=== PATIENT | female | born 1975 | race Caucasian/White ===

== ENCOUNTER 2019-08-10 00:38 | Outpatient (CLI) | payer OTHER, SELFPAY ==
[2019-08-10 16:19] LABS: SARS-CoV-2 RNA PCR Negative
== END 2019-08-10 00:39 | disposition home or self-care (01) ==
LOC: ANHCOVIDDT 00:38
PROVIDERS: PCP Family Medicine; Visit Provider Internal Medicine Gastroenterology
DX: Z01.818 Encounter for other preprocedural examination (principal); Z11.59 Encounter for screening for other viral diseases
CPT/HCPCS: 87635; C9803; U0003

== ENCOUNTER 2019-08-13 00:22 | Day surgery (SDC) | payer OTHER, SELFPAY ==
[2019-08-06 12:57] VITALS: BMI 24.1
--- NOTE | 2019-08-13 08:11 | P.PNAN_ITS ---
Anes - Initial Pre Proc Eval Procedure: Operation Date: 08/13/19 10:00 Proposed Procedures p Screening Colonoscopy - Apollo Ramirez MD Date/Time: 08/13/19 08:11 Surgeon: Apollo Ramirez MD Pre Op Diagnosis: Fam Hx Colon Ca Patient Data Age: 44 Gender: F Height: 1.7 m Weight: 70 kg Allergies Allergy/AdvReac Type Severity Reaction Status Date / Time Sulfa (Sulfonamide Allergy Mild Rash Verified 08/13/19 08:51 Antibiotics) Home Medications Medication Instructions Recorded Confirmed Type fluticasone propionate 50 1 spray NASAL DAILY #9.9 ml 07/24/19 08/06/19 Rx mcg/actuation nasal spray,suspension peg 3350-electrolytes 236 240 ml PO Q10M #4000 ml 08/09/19 Rx gram-22.74 gram-6.74 gram-5.86 gram solution Patient hx anesthesia problems: none Family hx anesthesia problems: none PMFSH Social History Social History Smoking status: Never smoker Alcohol intake: current Anes - Eval Final PreProcedure Day of Procedure 08/13/19 08:11 Patient weight: normal Heart: regular rate and rhythm Lungs: clear to auscultation and normal air movement Airway: Mallampati scale class II Neurological: alert and oriented Last oral intake: >/= 8 hours ASA classification: I Emergent: no Anesthetic plan: proceed Anesthesia type and monitoring: general GIVS Informed Consent: The patient's anesthetic plan and its attendant risks and benefits were discussed with the patient/family/POA. Questions were solicited a nd answers provided to the satisfaction of the patient/family/POA.
[2019-08-13 08:58] VITALS: BP 125/79; PULSE 70; RESP 18; TEMP 36.6; O2SAT 100
[2019-08-13] MEDS: LACTATED RINGERS 1,000 ML 150 ML IV CONT (09:15)
--- NOTE | 2019-08-13 09:45 | WPDHPUPDATE1 ---
History and Physical Update Update Date/Time: 08/13/19 09:45 History and Physical has been reviewed, including an updated exam of the patient. There are NO changes in the patient's condition. Risks, benefits, and alternatives have been discussed and questions answered. Patient agrees to proceed with procedure.
--- NOTE | 2019-08-13 09:58 | SUR.OPER ---
0952 UPDATED FAMILY (JUAN PABLO) PATIENT TAKEN INTO PROCEDURE ROOM
[2019-08-13 10:40] VITALS: BP 116/73; PULSE 61; RESP 16; O2SAT 100
[2019-08-13 10:50] VITALS: BP 116/76; PULSE 80; RESP 20; O2SAT 100
[2019-08-13 11:00] VITALS: BP 137/79; PULSE 72; RESP 18; O2SAT 100
== END 2019-08-13 11:42 | disposition home or self-care (01) ==
PROVIDERS: PCP Family Medicine; Visit Provider Internal Medicine Gastroenterology
PROC: 0DJD8ZZ Inspection of Lower Intestinal Tract, Via Natural or Artificial Opening Endoscopic (ICD-10-PCS; CPT 45378; principal; 2019-08-13 10:00)
DX: Z12.11 Encounter for screening for malignant neoplasm of colon (principal); K57.30 Diverticulosis of large intestine without perforation or abscess without bleeding; K63.5 Polyp of colon; Z80.0 Family history of malignant neoplasm of digestive organs
CPT/HCPCS: 45381; 45385; 88305; J2704; J7120

== ENCOUNTER → 2019-11-04 14:57 | Outpatient (CLI) | payer OTHER, SELFPAY ==
--- NOTE | ~2019-11-04 | MM_ITS ---
EXAMINATION: MM screening samantha BI w sandy HISTORY: Screening mammogram TECHNIQUE: Craniocaudal and mediolateral oblique 3-D tomosynthesis images were obtained and synthetic 2-D images were generated. CAD analysis was submitted and interpreted. COMPARISON: 11/01/2017 bilateral digital screening mammogram 06/01/2016 bilateral diagnostic digital mammogram and Limited bilateral breast ultrasound examination BREAST PARENCHYMAL COMPOSITION: The breasts are heterogeneously dense, which may obscure small masses . FINDINGS: Bilateral asymmetries and bilateral breast masses are suggested, including up to 2.5 cm cir cumscribed mass in the central right breast and up to 10 mm or larger masses on the left. Bilateral d iagnostic mammography and breast ultrasound examination are recommended. IMPRESSION: 1. Bilateral asymmetry and masses 2. Bilateral diagnostic mammography and breast ultrasound examination are recommended. BI-RADS Category 0: Incomplete: Needs additional imaging evaluation. Reviewed, dictated and finalized at location A. IMPRESSION: 1. Bilateral asymmetry and masses 2. Bilateral diagnostic mammography and breast ultrasound examination are recom mended. BI-RADS Category 0: Incomplete: Needs additional imaging evaluation.
== END ==
PROVIDERS: Visit Provider Obstetrics & Gynecology
DX: Z12.31 Encounter for screening mammogram for malignant neoplasm of breast (principal); R92.8 Other abnormal and inconclusive findings on diagnostic imaging of breast
CPT/HCPCS: 77063; 77067

== ENCOUNTER → 2019-11-26 08:00 | Outpatient (CLI) | payer OTHER, SELFPAY ==
--- NOTE | ~2019-11-26 | MMUS_ITS ---
EXAMINATION: MM diagnostic mammo BI, US breast BI complete HISTORY: Follow-up bilateral breast masses and asymmetries. TECHNIQUE: Additional 3-D tomosynthesis images of the breasts were performed and synthetic 2-D images were generated. CAD analysis was submitted and interpreted. High resolution complete bilateral breas t ultrasound was performed. COMPARISON: Comparison to multiple prior studies sequentially, with oldest reviewed study dated 06/01. BREAST PARENCHYMAL COMPOSITION: The breasts are heterogenously dense, which may obscure small masses. FINDINGS: MAMMOGRAPHIC FINDINGS: Bilateral breast asymmetries are reidentified. There are no suspicious calcifications or architectura l distortion. There are several breast masses which are partially obscured by dense fibroglandular ti ssue. ULTRASOUND: There are in numerable bilateral breast cysts accounting for the masses seen on mammography. Largest in the right breast at 11:00, 2 cm from the nipple measuring 2.7 cm greatest dimension. Largest in th e left breast at 10:00, 4 cm from the nipple measuring 1.8 cm. IMPRESSION: 1. Innumerable bilateral cysts accounting for bilateral masses and asymmetries seen on mammography. N o evidence for malignancy. 2. Routine yearly screening mammogram and regular clinical breast examination are recommended. BI-RADS Category 2: Benign finding(s). Reviewed, dictated and finalized at location A. IMPRESSION: 1. Innumerable bilateral cysts accounting for bilateral masses and asymmetries seen on mammography. No evidence for malignancy. 2. Routine yearly screening mammogram and regular clinical breast examination a re recommended. BI-RADS Category 2: Benign finding(s).
== END ==
PROVIDERS: Visit Provider Obstetrics & Gynecology
DX: R92.8 Other abnormal and inconclusive findings on diagnostic imaging of breast (principal)
CPT/HCPCS: 76641; 77066

== ENCOUNTER → 2020-01-22 10:46 | Outpatient (CLI) | payer OTHER, SELFPAY ==
--- NOTE | ~2020-01-22 | CT_ITS ---
EXAMINATION: CT abdomen pelvis w con EXAM DATE: 01/22/2020 11:27 INDICATION: R10.31 - Right lower quadrant pain TECHNIQUE: Spiral CT of the abdomen and pelvis was performed following intravenous injection of 100 m L Omnipaque 350. Axial, coronal and sagittal images were reviewed. The dose-length product (DLP) fo r this examination was 514.43 mGy-cm. The exposure was tailored according to patient size (auto mA e xposure control), and iterative reconstruction (ASIR) was used as additional dose reduction technique . Comparison is made to prior examination from 08/11/2012. FINDINGS: The liver, spleen, adrenal glands and pancreas are unremarkable. Gallbladder is unremarkab le. No biliary obstruction. Portal and splenic veins are patent. Kidneys enhance symmetrically. T here is no hydronephrosis. The uterus and ovaries are unremarkable, no adnexal mass. The bladder i s unremarkable. There is no retroperitoneal or pelvic lymphadenopathy. Appendix has fluid inside, is normal in caliber and without adjacent inflammation (see axial images 9 2-93, coronal image 33. This is located in the superficial aspect right lower quadrant just above the inguinal canal for clinical correlation. The stomach and small bowel are unremarkable. There is expected amount of colonic stool. No free i ntraperitoneal gas. The heart is normal in size. There are no pericardial or pleural effusions. T he lung bases are unremarkable. There are no osteoblastic or osteolytic lesions identified. IMPRESSION: Appendix with fluid inside, but normal in caliber and no adjacent inflammation or other a cute findings. Reviewed, dictated and finalized at location A. MER OPERATOR IMPRESSION: Appendix with fluid inside, but normal in caliber and no adjacent i nflammation or other acute findings.
== END ==
PROVIDERS: PCP Nurse Practitioner; Visit Provider Nurse Practitioner
DX: R10.31 Right lower quadrant pain (principal)
CPT/HCPCS: 74177; Q9967

== ENCOUNTER 2020-04-14 11:10 | Outpatient (CLI) | payer OTHER, SELFPAY ==
--- NOTE | ~2020-04-14 | US_ITS ---
EXAMINATION: US breast RT limited HISTORY: Palpable lump at the 9:00 location of the right breast TECHNIQUE: Limited right breast ultrasound is performed. COMPARISON: 11/26/2019 FINDINGS: There is a group of cysts at the 9:00 location in the breast corresponding to the palpable abnormality of concern. The largest cyst measures 2.9 cm, previously 2.7 cm. IMPRESSION: Grouped cysts of the right breast corresponding to the palpable abnormality of concern. BI-RADS Category 2: Benign finding(s). Reviewed, dictated and finalized at location A. DEVELOPER DESIGNER
== END 2020-04-14 11:11 | disposition home or self-care (01) ==
PROVIDERS: PCP Nurse Practitioner; Visit Provider Obstetrics & Gynecology
DX: N60.11 Diffuse cystic mastopathy of right breast (principal)
CPT/HCPCS: 76642

== ENCOUNTER 2021-01-11 02:13 | Day surgery (SDC) | payer OTHER, SELFPAY ==
[2020-12-28 12:55] VITALS: BMI 23.9
--- NOTE | 2021-01-11 07:32 | P.PNAN_ITS ---
Anes - Initial Pre Proc Eval Procedure: Operation Date: 01/11/21 08:30 Proposed Procedures p Screening Colonoscopy - Apollo Ramirez MD Date/Time: 01/11/21 07:32 Surgeon: Apollo Ramirez MD Pre Op Diagnosis: hx of colon polyps, neoplasm screening Patient Data Age: 45 Gender: F Height: 1.68 m Weight: 67.2 kg Allergies Allergy/AdvReac Type Severity Reaction Status Date / Time Sulfa (Sulfonamide Allergy Mild Rash Verified 01/11/21 07:44 Antibiotics) Home Medications Medication Instructions Recorded Confirmed Type norethindrone 1 mg-ethinyl 1 tablet PO DAILY tablet 01/14/20 01/11/21 History estradiol 20 mcg (21)-iron 75 mg (7) tablet rosuvastatin 20 mg tablet 20 mg PO DAILY #30 tablet 01/04/21 01/11/21 Rx Patient hx anesthesia problems: none Family hx anesthesia problems: none Results Review: All pre-operative results and documents have been reviewed as part of the pre-operative evaluation. [facility] Past Medical History Medical History (Updated 11/25/20 @ 16:18 by Susannah Nam NP) Family history of colon cancer in mother Hyperlipidemia Family History Family History Mother Colon cancer Grandparent Diabetes mellitus Social History Social History Smoking status: Former smoker Alcohol intake: current Drinks per week: 5 Substance use type: does not use Living arrangements: with family Anes - Eval Final PreProcedure Day of Procedure 01/11/21 07:32 Patient weight: normal Heart: regular rate and rhythm Lungs: clear to auscultation and normal air movement Airway: Mallampati scale class II Neurological: alert and oriented Last oral intake: >/= 8 hours ASA classification: II Emergent: no Anesthetic plan: proceed Anesthesia type and monitoring: general GIVS Results Review: All pre-operative results and documents have been reviewed as part of the pre-operative evaluation. Informed Consent: The patient's anesthetic plan and its attendant risks and benefits were discussed with the patient/family/POA. Questions were solicited and answers provided to the satisfaction of the patient/family/POA.
[2021-01-11 07:45] VITALS: BP 121/86; PULSE 96; RESP 17; TEMP 36.4; O2SAT 100; BMI 23.1
[2021-01-11] MEDS: LACTATED RINGERS 1,000 ML 150 ML IV CONT (07:53)
--- NOTE | 2021-01-11 08:24 | PM.HPGS ---
History of Present Illness History of Present Illness Consent: Risks, benefits, and alternatives have been discussed and questions answered. Patient agrees to proceed with procedure. Chief complaint: hx of colon polyps, neoplasm screening Narrative: Deanna Reyes is a 45 year old female with large polyp removed 1 year ago and mother with colon cancer Review of Systems Constitutional: Constitutional: Denies headache(s) and Denies weakness Eyes: Eyes: Denies blurry vision ENT: Reports Normal hearing present, Denies headache(s) and Denies neck pain Cardiovascular: Cardiovascular: Denies chest pain and Denies dyspnea Respiratory: Respiratory: Denies dyspnea Gastrointestinal: Gastrointestinal: Reports no additional gastrointestinal complaints Genitourinary: Genitourinary: Denies dysuria Musculoskeletal: Musculoskeletal: Denies neck pain Integumentary/Breasts: Skin/Breast: Denies dry skin Neurologic: Reports Normal hearing present, Denies headache(s) and Denies weakness Psychiatric: Psychiatric: Denies anxiety Endocrine: Endocrine: Denies change in body appearance Hematologic/Lymphatic: Hematologic/Lymphatic: Denies easy bleeding Allergic/Immunologic: Allergic/Immunologic: Denies urticaria [facility] Past Medical History Medical History (Updated 11/25/20 @ 16:18 by Susannah Nam NP) Family history of colon cancer in mother Hyperlipidemia Family History Family History Mother Colon cancer Grandparent Diabetes mellitus Social History Social History Smoking status: Former smoker Alcohol intake: current Drinks per week: 5 Substance use type: does not use Living arrangements: with family Meds Home Medications and Allergies Home Medications Medication Instructions Recorded Confirmed Type norethindrone 1 mg-ethinyl 1 tablet PO DAILY tablet 01/14/20 01/11/21 History estradiol 20 mcg (21)-iron 75 mg (7) tablet rosuvastatin 20 mg tablet 20 mg PO DAILY #30 tablet 01/04/21 01/11/21 Rx Allergies Allergy/AdvReac Type Severity Reaction Status Date / Time Sulfa (Sulfonamide Allergy Mild Rash Verified 01/11/21 07:44 Antibiotics) Vital Signs Vital Signs - 24 hr 01/11/21 07:45 Temperature 97.5 F L Pulse Rate 96 Respiratory Rate 17 Blood Pressure 121/86 Pulse Oximetry 100 Exam Const: General: comfortable and no acute distress HENMT: General nose exam: Normal nares present Eyes: General: appearance normal, both eyes and all related structures Neck: Neck: no JVD Resp: Auscultation: clear to auscultation bilaterally Cardio: Rate: regular rate Rhythm: regular rhythm GI: Inspection: non-distended GI Palp: Yes Soft to palpation Skin: General skin exam: normal color Neuro: General: gait normal Speech: normal speech Extrem: General: normal to inspection Psych: Mental Status: mental status grossly normal Assessment and Plan Assessment and plan (1) Family history of colon cancer in mother: Code(s): Z80.0 - Family history of malignant neoplasm of digestive organs Status: Acute Assessment and Plan: colonoscopy
[2021-01-11 08:47] VITALS: BP 109/77; PULSE 79; RESP 16; O2SAT 99
[2021-01-11 08:57] VITALS: BP 111/79; PULSE 81; RESP 16; O2SAT 100
[2021-01-11 09:07] VITALS: BP 145/93; PULSE 58; RESP 18; O2SAT 100
== END 2021-01-11 09:21 | disposition home or self-care (01) ==
PROVIDERS: PCP Nurse Practitioner; Visit Provider Internal Medicine Gastroenterology
PROC: 0DJD8ZZ Inspection of Lower Intestinal Tract, Via Natural or Artificial Opening Endoscopic (ICD-10-PCS; CPT 45378; principal; 2021-01-11 08:30)
DX: Z12.11 Encounter for screening for malignant neoplasm of colon (principal); D12.3 Benign neoplasm of transverse colon; K57.30 Diverticulosis of large intestine without perforation or abscess without bleeding; K64.8 Other hemorrhoids; Z80.0 Family history of malignant neoplasm of digestive organs; E78.5 Hyperlipidemia, unspecified
CPT/HCPCS: 45385; 88305; J2704; J7120

== ENCOUNTER → 2021-02-12 07:57 | Outpatient (CLI) | payer OTHER, SELFPAY ==
--- NOTE | ~2021-02-12 | MM_ITS ---
EXAMINATION: MM screening samantha BI w sandy HISTORY: Screening TECHNIQUE: Craniocaudal and mediolateral oblique 3-D tomosynthesis images were obtained and synthetic 2-D images were generated. CAD analysis was submitted and interpreted. COMPARISON: Comparison to multiple prior studies sequentially, with oldest reviewed study dated 06/01. BREAST PARENCHYMAL COMPOSITION: The breasts are heterogenously dense, which may obscure small masses FINDINGS: There are developing punctate calcifications in the upper inner quadrant of the right breas t, middle third. There are developing masses which are partially obscured in the upper outer quadrant of the right breast. The left breast is stable without evidence for malignancy. IMPRESSION: 1. Developing clustered punctate right breast calcifications, upper inner quadrant. Developing obscur ed masses in the upper outer quadrant of the right breast. 2. Additional spot compression and mediolateral views with possible follow-up breast ultrasound recom mended. BI-RADS Category 0: Incomplete: Needs additional imaging evaluation. Reviewed, dictated and finalized at location A. ULATION WORKER IMPRESSION: 1. Developing clustered punctate right breast calcifications, upper inner quadr ant. Developing obscured masses in the upper outer quadrant of the right breast . 2. Additional spot compression and mediolateral views with possible follow-up b reast ultrasound recommended. BI-RADS Category 0: Incomplete: Needs additional imaging evaluation.
== END ==
PROVIDERS: Visit Provider Nurse Practitioner Obstetrics & Gynecology
DX: Z12.31 Encounter for screening mammogram for malignant neoplasm of breast (principal); R92.8 Other abnormal and inconclusive findings on diagnostic imaging of breast
CPT/HCPCS: 77063; 77067

== ENCOUNTER → 2021-04-07 09:24 | Outpatient (CLI) | payer OTHER, SELFPAY ==
--- NOTE | ~2021-04-07 | MMUS_ITS ---
EXAMINATION: MM diagnostic samantha RT w sandy, US breast RT complete HISTORY: Follow-up right breast masses TECHNIQUE: Additional 3-D tomosynthesis images of the right breast were performed and synthetic 2-D i mages were generated. CAD analysis was submitted and interpreted. High resolution complete right digna st ultrasound was performed. COMPARISON: Comparison to multiple prior studies sequentially, with oldest reviewed study dated 06/01. BREAST PARENCHYMAL COMPOSITION: The breasts are heterogenously dense, which may obscure small masses. FINDINGS: MAMMOGRAPHIC FINDINGS: There are multiple masses in the right breast which are partially obscured by fibroglandular tissue. There are no suspicious calcifications or architectural distortion. ULTRASOUND: Complete US of all 4 quadrants of the right and retroareolar region was reviewed. There are multiple cysts throughout the left breast which correspond to the mammographic findings. There is a cluster of microcysts at 3:00 near the areola and at 8:00, 6 cm from the nipple. Largest cyst measures approxim ately 1.5 cm. IMPRESSION: 1. No evidence for malignancy in the right breast. Benign findings. 2. Routine yearly screening mammogram and regular clinical breast examination are recommended. BI-RADS Category 2: Benign finding(s). Reviewed, dictated and finalized at location A. S FRAME FITTER IMPRESSION: 1. No evidence for malignancy in the right breast. Benign findings. 2. Routine yearly screening mammogram and regular clinical breast examination a re recommended. BI-RADS Category 2: Benign finding(s).
== END ==
PROVIDERS: Visit Provider Nurse Practitioner Obstetrics & Gynecology
DX: R92.8 Other abnormal and inconclusive findings on diagnostic imaging of breast (principal); N60.01 Solitary cyst of right breast
CPT/HCPCS: 76641; 77061; 77065; G0279

== ENCOUNTER 2022-08-31 08:22 | Outpatient (CLI) | payer OTHER, SELFPAY ==
[2022-08-31 18:17] LABS: Basophils Percent Auto 0.4 % (0.2-1.2); Eosinophils Absolute Auto 0.2 K/mm3 (0-0.3); Eosinophils Percent Auto 2.3 % (0-4.4); Hematocrit 40.9 % (37.0-47.0); Hemoglobin 13.3 g/dL (12.0-15.0); Immature Granulocyte Absolute 0.02 K/mm3 (0.00-0.031); Immature Granulocyte Percent A 0.3 % (0-0.5); Lymphocytes Absolute Auto 2.71 K/mm3 (0.9-3.2); Lymphocytes Percent Auto 38.8 % (18.3-44.2); Mean Corpuscular HGB Conc 32.5 g/dl (32-36); Mean Corpuscular Hemoglobin 31.4 pg (26-34); Mean Corpuscular Volume 96.5 fl (80-100); Monocytes Absolute Auto 0.3 K/mm3 (0.1-0.6); Monocytes Percent Auto 4.9 % (2.6-8.5); Neutrophils Absolute Auto 3.7 K/mm3 (1.3-6.7); Neutrophils Percent Auto 53.3 % (45.5-73.1); Platelet Count Result 245 k/mm3 (150-375); Red Blood Count 4.24 M/mm3 (4.2-5.4); Red Cell Distribution Width 13.4 % (11.5-14.5)
[2022-08-31 18:28] LABS: Alanine Aminotransferase 22 U/L (6-35); Albumin Level 4.1 g/dL (3.5-5.1); Alkaline Phosphatase 43 U/L (38-126); Anion Gap 5 mmol/L (8-16); Aspartate Amino Transferase 30 U/L (14-36); Bilirubin,Total 0.5 mg/dL (0.2-1.3); Blood Urea Nitrogen 11 mg/dL (7-17); Calcium 8.8 mg/dL (8.4-10.2); Carbon Dioxide 27 mmol/L (22-30); Chloride 105 mmol/L (98-107); Cholesterol 158 mg/dL (0-200); Estimated Glomerular Filt Rate > 60; Glucose 86 mg/dL (65-110); HDL Direct 63 mg/dL; Potassium 4.6 mmol/L (3.4-5.0); Sodium 137 mmol/L (137-145); Triglycerides 177 mg/dL (<150)
[2022-08-31 18:38] LABS: LDL Cholesterol Direct 66 mg/dL
[2022-08-31 18:56] LABS: Hemoglobin A1C 5.5 % (<5.7)
[2022-09-07 15:06] LABS: Estrogen 163.2 pg/mL
== END 2022-08-31 08:23 | disposition home or self-care (01) ==
LOC: ANHGOSHLAB 08:23
PROVIDERS: PCP Family Medicine; Visit Provider Nurse Practitioner Family
DX: I10 Essential (primary) hypertension (principal); Z13.1 Encounter for screening for diabetes mellitus; Z13.220 Encounter for screening for lipoid disorders; Z13.29 Encounter for screening for other suspected endocrine disorder; Z00.00 Encounter for general adult medical examination without abnormal findings; N95.9 Unspecified menopausal and perimenopausal disorder
CPT/HCPCS: 36415; 80053; 80061; 82672; 83036; 84443; 85025

== ENCOUNTER 2024-02-06 01:31 | Day surgery (SDC) | payer OTHER, SELFPAY ==
[2024-01-29 12:18] VITALS: BMI 25.0
[2024-02-06 06:46] VITALS: BP 125/87; PULSE 76; RESP 16; TEMP 36.8; O2SAT 99
[2024-02-06 06:55] LABS: BEDSIDEPREGUCG Negative (Negative)
[2024-02-06] MEDS: LACTATED RINGERS 1,000 ML 150 ML IV CONT (06:58)
--- NOTE | 2024-02-06 07:06 | WPDANESEPPF ---
Anes - Initial Pre Proc Eval Procedure: Operation Date: 02/06/24 08:00 Proposed Procedures p Screening Colonoscopy - Apollo Ramirez MD Date/Time: 02/06/24 07:06 Surgeon: Apollo Ramirez MD Pre Op Diagnosis: Fam. Hx. colon CA, Pers. Hx. colon polyps Patient Data Age: 49 Gender: F Height: 1.7 m Weight: 74.3 kg Last Vital Signs Temp 36.8 C 02/06/24 06:46 Pulse 76 02/06/24 06:46 Resp 16 02/06/24 06:46 BP 125/87 02/06/24 06:46 Pulse Ox 99 02/06/24 06:46 O2 Del Method Room Air 02/06/24 06:46 Allergies Allergy/AdvReac Type Severity Reaction Status Date / Time Sulfa (Sulfonamide Allergy Mild Rash Verified 02/06/24 06:45 Antibiotics) Home Medications ?Medication ?Instructions ?Recorded ?Confirmed ?Type rosuvastatin 20 mg tablet 20 mg PO DAILY #90 tabs 11/14/23 02/06/24 Rx Laboratory Tests 02/06/24 06:53 POC Urine HCG, Qual Negative (Negative) Patient hx anesthesia problems: none Family hx anesthesia problems: none Results Review: All pre-operative results and documents have been reviewed as part of the pre-operative evaluation. [facility] Past Medical History Medical History Left ankle instability Left ankle gives out Encounter for colonoscopy due to history of colonic polyp Depression Hyperlipidemia Family history of colon cancer in mother Surgical History Surgical History (Updated 02/06/24 @ 07:06 by Ehsan Sutherland MD) H/O colonoscopy Family History Family History Mother Colon cancer Grandparent Diabetes mellitus Social History Social History Smoking status: Never smoker Alcohol intake: current Drinks per week: 5 Substance use: never Substance use type: does not use Lack of Transportation: No Lack of Food: Never True Current Housing: I Have Housing Concerned About Future Housing: No Difficulty Paying Gas/Electric Bills: No Difficulty Paying for Meds: No Currently Unemployed: No Education: Master's Degree or Higher Difficulty w/ Childcare or Family Care: No Living arrangements: with family Occupation/Education: occupation Spiritual care concerns: No Agree to blood products: Yes Anes - Eval Final PreProcedure Day of Procedure 02/06/24 07:06 Patient weight: normal Heart: regular rate and rhythm Lungs: clear to auscultation Airway: Mallampati scale class II Neurological: alert and oriented Last oral intake: >/= 8 hours ASA classification: II Emergent: no Anesthetic plan: proceed Anesthesia type and monitoring: general GIVS and standard monitoring Results Review: All pre-operative results and documents have been reviewed as part of the pre-operative evaluation. Informed Consent: The patient's anesthetic plan and its attendant risks and benefits were discussed with the patient/family/POA. Questions were solicited and answers provided to the satisfaction of the patient/family/POA.
--- NOTE | 2024-02-06 07:47 | PM.HPGS ---
History of Present Illness History of Present Illness Consent: Risks, benefits, and alternatives have been discussed and questions answered. Patient agrees to proceed with procedure. Chief complaint: Fam. Hx. colon CA, Pers. Hx. colon polyps Narrative: Deanna Reyes is a 49 year old female with colon polyp 2020, mother had colon cancer Review of Systems Review of Systems: All systems reviewed & are unremarkable except as noted in HPI and below PMFSH Past Medical History Medical History Left ankle instability Left ankle gives out Encounter for colonoscopy due to history of colonic polyp Depression Hyperlipidemia Family history of colon cancer in mother Surgical History Surgical History (Updated 02/06/24 @ 07:06 by Ehsan Sutherland MD) H/O colonoscopy Family History Family History Mother Colon cancer Grandparent Diabetes mellitus Social History Social History Smoking status: Never smoker Alcohol intake: current Drinks per week: 5 Substance use: never Substance use type: does not use Lack of Transportation: No Lack of Food: Never True Current Housing: I Have Housing Concerned About Future Housing: No Difficulty Paying Gas/Electric Bills: No Difficulty Paying for Meds: No Currently Unemployed: No Education: Master's Degree or Higher Difficulty w/ Childcare or Family Care: No Living arrangements: with family Occupation/Education: occupation Spiritual care concerns: No Agree to blood products: Yes Meds Home Medications and Allergies Home Medications ?Medication ?Instructions ?Recorded ?Confirmed ?Type rosuvastatin 20 mg tablet 20 mg PO DAILY #90 tabs 11/14/23 02/06/24 Rx Allergies Allergy/AdvReac Type Severity Reaction Status Date / Time Sulfa (Sulfonamide Allergy Mild Rash Verified 02/06/24 06:45 Antibiotics) Vital Signs Vital Signs - 24 hr 02/06/24 06:46 Temperature 98.2 F Pulse Rate 76 Respiratory Rate 16 Blood Pressure 125/87 Pulse Oximetry 99 Oxygen Delivery Room Air Exam Const: General: comfortable and no acute distress HENMT: Face/Nose/Sinus: Normal nares present Eyes: General: appearance normal, both eyes and all related structures Neck: Neck: no JVD Resp: Auscultation: clear to auscultation bilaterally Cardio: Rate: regular rate Rhythm: regular rhythm GI: Inspection: non-distended GI Palp: Yes Soft to palpation Skin: General skin exam: normal color Neuro: General: gait normal Speech: normal speech Extrem: General: normal to inspection Psych: Mental Status: mental status grossly normal Assessment and Plan Assessment and plan (1) Family history of colon cancer in mother: Code(s): Z80.0 - Family history of malignant neoplasm of digestive organs Status: Acute Assessment and Plan: colonoscopy (2) Encounter for colonoscopy due to history of colonic polyp: Code(s): Z12.11 - Encounter for screening for malignant neoplasm of colon; Z86.010 - Personal history of colon polyps Status: Acute
[2024-02-06 08:01] VITALS: BP 129/90; PULSE 71; RESP 18; O2SAT 100
[2024-02-06 08:11] VITALS: BP 137/90; PULSE 73; RESP 18; O2SAT 100
[2024-02-06 08:21] VITALS: BP 142/96; PULSE 70; RESP 16; O2SAT 100
== END 2024-02-06 08:32 | disposition home or self-care (01) ==
PROVIDERS: Anesthesiology; PCP Family Medicine; Referring Provider Nurse Practitioner Family; Visit Provider Internal Medicine Gastroenterology
PROC: 0DJD8ZZ Inspection of Lower Intestinal Tract, Via Natural or Artificial Opening Endoscopic (ICD-10-PCS; CPT 45378; principal; 2024-02-06 08:00)
DX: Z12.11 Encounter for screening for malignant neoplasm of colon (principal); K57.30 Diverticulosis of large intestine without perforation or abscess without bleeding; E78.5 Hyperlipidemia, unspecified; F32.A Depression, unspecified; Z86.0100 Personal history of colon polyps, unspecified; Z80.0 Family history of malignant neoplasm of digestive organs
CPT/HCPCS: 45378; J2704; J7120